=== PATIENT | female | born 1955 | race Caucasian/White ===

== ENCOUNTER 2016-11-23 22:56 | Emergency (ER) | payer OTHER ==
[~2016-11-23] VITALS: Ht 152.4 cm; Wt 75.0 kg
[2016-11-23 23:10] VITALS: Ht 152.4 cm; Wt 75.0 kg
[2016-11-24 01:02] LABS: ADD SCAN DIFF NO
[2016-11-24] MEDS ORDERED: FOSI20TA PO (01:05)
[2016-11-24 01:06] LABS: BASOPHIL # 0.1 10^3/ul (0.0-0.1); BASOPHILS % 0.5 % (0.0-2.0); EOSINOPHILS # 0.4 10^3/ul (0.0-0.5); EOSINOPHILS % 2.8 % (0.0-7.0); HEMATOCRIT 45.5 % (37.0-47.0); HEMOGLOBIN 14.4 g/dl (12.0-16.0); LYMPHOCYTES # 3.4 10^3/ul (0.8-2.9); LYMPHOCYTES % 26.2 % (15.0-51.0); MEAN CORPUSCULAR HEMOGLOBIN 29.1 pg (29.0-33.0); MEAN CORPUSCULAR HGB CONC 31.6 g/dl (32.0-37.0); MEAN CORPUSCULAR VOLUME 92.1 fl (82.0-101.0); MEAN PLATELET VOLUME 9.5 fl (7.4-10.4); MONOCYTES % 7.8 % (0.0-11.0); NEUTROPHIL # 8.2 10^3/ul (1.6-7.5); NEUTROPHILS % 62.3 % (39.0-77.0); PLATELET COUNT 257 10^3/UL (140-415); RED BLOOD COUNT 4.94 10^6/ul (4.20-5.40); RED CELL DISTRIBUTION WIDTH 13.3 % (11.5-14.5); WHITE BLOOD COUNT 13.1 10^3/ul (4.8-10.8)
--- NOTE | 2016-11-24 01:07 | ERD ---
ER Documentation Chief Complaint Date/Time DATE: 11/24/16 TIME: 01:04 Chief Complaint burning with urination and blood with wiping HPI 61-year-old female presents here in emergency department for complaints of suprapubic pain radiating to bilateral flank area dysuria and hematuria started today. Patient is complaining of burning pain4/10 scale, is worse upon urination accompanied with suprapubic pain and hematuria. Patient complains of suprapubic pain and flank pain, sharp pain, 4/10 scale, accompanying other symptoms. Patient does not have any fever or chills. Patient denies any nausea or vomiting. Patient denies any diarrhea or constipation. She does not have any vaginal bleeding. ROS All systems reviewed and are negative except as per history of present illness. Medications Home Meds Active Scripts Phenazopyridine Hcl* (Pyridium*) 200 Mg Tab, 200 MG PO TID Y for URINARY PAIN, # 6 TAB Prov:ARNOL BERG NP 11/24/16 Ciprofloxacin Hcl* (Ciprofloxacin Hcl*) 500 Mg Tablet, 500 MG PO BID for 10 Days , TAB Prov:ARNOL BERG [employer] 11/24/16 Reported Medications Fosinopril Sodium (Fosinopril Sodium) Unknown Strength Tablet, PO DAILY, TAB 11/24/16 Allergies Allergies: Coded Allergies: acetaminophen (Verified Allergy, Unknown, 11/24/16) PMhx/Soc History of Surgery: No Anesthesia Reaction: No Hx Neurological Disorder: No Hx Respiratory Disorders: No Hx Cardiac Disorders: No Hx Alcohol Use: No Hx Substance Use: No Hx Tobacco Use: No Smoking Status: Never smoker Physical Exam Vitals Vital Signs Date Time Temp Pulse Resp B/P Pulse Ox O2 Delivery O2 Flow Rate FiO2 11/23/16 23:10 98.3 66 20 192/86 99 Physical Exam GENERAL: The patient is well developed and appropriate for usual state of health, in no apparent distress. CHEST: Clear to auscultation bilaterally. There are no rales, wheezes or rhonchi. HEART: Regular rate and rhythm. No murmurs, clicks, rubs or gallops. No S3 or S4. ABDOMEN: Soft, nontender and nondistended. Good bowel sounds. No rebound or guarding. No gross peritonitis. No gross organomegaly or masses. No Mcadams sign or McBurney point tenderness. BACK: No midline or flank tenderness. EXTREMITIES: Equal pulses bilaterally. There is no peripheral clubbing, cyanosis or edema. No focal swelling or erythema. Full range of motion. Grossly neurovascularly intact. NEURO: Alert and oriented. Cranial nerves 2-12 intact. Motor strength in all 4 extremities with 5/5 strength. Sensation grossly intact. Normal speech and gait. SKIN: There is no apparent rash or petechia. The skin is warm and dry. HEMATOLOGIC AND LYMPHATIC: There is no evidence of excessive bruising or lymphedema. No gross cervical, axillary, or inguinal lymphadenopathy. Result Diagram: 11/24/16 0045 11/24/16 0045 Results 24 hrs Laboratory Tests Test 11/24/16 00:45 11/24/16 00:48 White Blood Count 13.110^3/ul Red Blood Count 4.9410^6/ul Hemoglobin 14.4g/dl Hematocrit 45.5% Mean Corpuscular Volume 92.1fl Mean Corpuscular Hemoglobin 29.1pg Mean Corpuscular Hemoglobin Concent 31.6g/dl Red Cell Distribution Width 13.3% Platelet Count 12924^3/UL Mean Platelet Volume 9.5fl Neutrophils % 62.3% Lymphocytes % 26.2% Monocytes % 7.8% Eosinophils % 2.8% Basophils % 0.5% Nucleated Red Blood Cells % 0.0/100WBC Neutrophils # 8.210^3/ul Lymphocytes # 3.410^3/ul Monocytes # 1.010^3/ul Eosinophils # 0.410^3/ul Basophils # 0.110^3/ul Nucleated Red Blood Cells # 0.010^3/ul Sodium Level 139mmol/L Potassium Level 3.8mmol/L Chloride Level 102mmol/L Carbon Dioxide Level 29mmol/L Anion Gap 12 Blood Urea Nitrogen 17mg/dl Creatinine 0.78mg/dl Glucose Level 106mg/dl Calcium Level 8.8mg/dl Total Bilirubin 0.4mg/dl Direct Bilirubin 0.00mg/dl Indirect Bilirubin 0.4mg/dl Aspartate Amino Transf (AST/SGOT) 80IU/L Alanine Aminotransferase (ALT/SGPT) 83IU/L Alkaline Phosphatase 98IU/L Total Protein 8.4g/dl Albumin 4.3g/dl Globulin 4.10g/dl Albumin/Globulin Ratio 1.04 Lipase 123U/L Urine Color DK. RED Urine Clarity HAZY Urine pH 5.5 Urine Specific [place] 1.020 Urine Ketones TRACE Urine Nitrite NEGATIVE Urine Bilirubin NEGATIVE Urine Urobilinogen 1.0 E.U./dL Urine Leukocyte Esterase TRACE Urine Microscopic RBC >200/HPF Urine Microscopic WBC 5-10/HPF Urine Squamous Epithelial Cells FEW Urine Bacteria OCCASIONAL Urine Hemoglobin 3+ Urine Glucose NEGATIVE% Urine Total Protein 2+ Current Medications Medications (Trade) Dose Ordered Sig/Shalonda Route PRN Reason Start Time Stop Time Status Last Admin Dose Admin Ceftriaxone Sodium (Rocephin) 1 gm ONCE ONCE IM 11/24/16 02:30 11/24/16 02:31 UNV PROCEDURE: CT abdomen and pelvis without intravenous contrast. CLINICAL INDICATION: Pain. TECHNIQUE: CT of the abdomen/pelvis was performed utilizing axial images with reconstructions in sagittal and coronal planes. The administered radiation dose is CTDI 16 mGy, DLP 960 mGy-cm. COMPARISON: No pertinent prior examinations were submitted for comparison. FINDINGS: Visualized Chest: Coronary artery calcifications are noted. Abdomen: The spleen, pancreas, gallbladder,and adrenal glands are unremarkable. The liver is diffusely decreased in attenuation, compatible with hepatic steatosis. The kidneys are without hydronephrosis. No definite urinary calculi are seen. There is no evidence of bowel obstruction. The appendix is normal. No intra- abdominal free air is seen. Numerous diverticula are noted along the descending and sigmoid colon without evidence of diverticulitis. There is no evidence of intra-abdominal adenopathy or free fluid. Pelvis: There is no evidence of pelvic adenopathy. The uterus and ovaries are without enlargement. The urinary bladder is unremarkable. There is no pelvic free fluid. Osseous structures: Unremarkable. IMPRESSION: No acute findings. Hepatic steatosis. Colonic diverticulosis. RPTAT: HIKT .Edu Dougherty MD, Date Time Electronically viewed and signed by .Edu Dougherty MD, on 11/24/2016 01:50 .T/ CC: ARNOL BERG NP Procedures/MDM Medical Decision Making: Patients symptoms are consistent with urinary tract infection. IM Rocephin was given here in emergency department for initial treatment for urinary tract infection. There is low suspicion for pyelonephritis. No CVA tenderness. No renal stones noted. No symptoms of any septic stone. CT scan abdomen and pelvis does not show any renal stone or symptoms of any or nephritis or any other abdominal emergencies. There is low suspicion for abdominal emergencies at this time. Patients abdominal exam is normal. There is low suspicion for sepsis. Patient appears well and is hemodynamically stable. Prescription was given for Pyridium, ciprofloxacin, is advised to take medications as prescribed, return to emergency department for worsening symptoms, follow with primary care doctor in 1-2 days for reevaluation of symptoms. Departure Diagnosis: Primary Impression: Acute cystitis Hematuria presence: with hematuria Qualified Code: N30.01 - Acute cystitis with hematuria Condition: Stable Patient Instructions: ARNOL Contreras NP Nov 24, 2016 01:07
[2016-11-24 01:11] LABS: ADD UMIC YES; URINE BILIRUBIN (Dip) NEGATIVE (NEGATIVE); URINE BLOOD (Dip) 3+ (NEGATIVE); URINE COLOR DK. RED (YELLOW); URINE GLUCOSE (Dip) NEGATIVE (NEGATIVE); URINE KETONES (Dip) TRACE (NEGATIVE); URINE LEUKOCYTE ESTERASE (Dip) TRACE (NEGATIVE); URINE NITRITE (Dip) NEGATIVE (NEGATIVE); URINE TOTAL PROTEIN (Dip) 2+ (NEGATIVE); URINE UROBILINOGEN (Dip) 1.0 E.U./dL (0.1-1.0)
[2016-11-24 01:27] LABS: BACTERIA,URINE OCCASIONAL; SQUAMOUS EPITHELIAL CELL,UR FEW; URINE RBCS >200 /HPF ([, 0])
[2016-11-24 01:28] LABS: ALBUMIN 4.3 g/dl (3.3-4.9)
[2016-11-24 01:29] LABS: POTASSIUM 3.8 mmol/L (3.5-5.1)
[2016-11-24 01:30] LABS: CREATININE 0.78 mg/dl (0.44-1.00)
[2016-11-24 01:31] LABS: BILIRUBIN,INDIRECT 0.4 mg/dl (0-1.1); BILIRUBIN,TOTAL 0.4 mg/dl (0.2-1.3); CALCIUM 8.8 mg/dl (8.4-10.2); TOTAL PROTEIN 8.4 g/dl (6.1-8.1)
[2016-11-24 01:36] LABS: ALBUMIN/GLOBULIN RATIO 1.04
--- NOTE | 2016-11-24 01:51 | RADRPT ---
PROCEDURE: CT abdomen and pelvis without intravenous contrast. CLINICAL INDICATION: Pain. TECHNIQUE: CT of the abdomen/pelvis was performed utilizing axial images with reconstructions in s agittal and coronal planes. The administered radiation dose is CTDI 16 mGy, DLP 960 mGy-cm. COMPARISON: No pertinent prior examinations were submitted for comparison. FINDINGS: Visualized Chest: Coronary artery calcifications are noted. Abdomen: The spleen, pancreas, gallbladder,and adrenal glands are unremarkable. The liver is diffusely dec reased in attenuation, compatible with hepatic steatosis. The kidneys are without hydronephrosis. No definite urinary calculi are seen. There is no evidence of bowel obstruction. The appendix is normal. No intra-abdominal free air is seen. Numerous diverticula are noted along the descending and sigmoid colon without evidence of div erticulitis. There is no evidence of intra-abdominal adenopathy or free fluid. Pelvis: There is no evidence of pelvic adenopathy. The uterus and ovaries are without enlargement. The uri nary bladder is unremarkable. There is no pelvic free fluid. Osseous structures: Unremarkable. IMPRESSION: No acute findings. Hepatic steatosis. Colonic diverticulosis. RPTAT: HIKT .Edu Dougherty MD, Date Time Electronically viewed and signed by .Edu Dougherty MD, on 11/24/2016 01:50 .T/
[2016-11-24] MEDS ORDERED: PHEN-538 PO (02:12)
[2016-11-24] MEDS ORDERED: CIPR500T4 PO (02:12)
[2016-11-24] MEDS ORDERED: CEFTRIAXONE 1 GM INJ IM ONE (02:30)
[2016-11-24 03:20] VITALS: RESP 16
[2016-11-24 03:50] VITALS: BP 194/80; PULSE 60
== END 2016-11-24 03:51 | disposition home or self-care (01) ==
LOC: FTE 22:56
DX: N30.01 Acute cystitis with hematuria (principal)
CPT/HCPCS: 36415; 74176; 80053; 81001; 83690; 85025; 87086; 96372; J0696; Z7502; 81003